=== PATIENT | female | born 1950 | race Caucasian/White ===

== ENCOUNTER 2021-04-11 18:05 | Inpatient (IN) | payer MEDICARE, OTHER ==
[~2021-04-11] VITALS: Ht 162.6 cm; Wt 74.2 kg
[2021-04-11] MEDS ORDERED: FAMOTIDINE 20 MG/2 ML VIAL IVP ONE (18:30)
[2021-04-11] MEDS ORDERED: IV NORMAL SALINE 1000ML BAG 1,000 ML IV SCH (18:30)
[2021-04-11] MEDS ORDERED: ONDANSETRON PF 4 MG/2 ML VIAL. IVP ONE (18:30)
[2021-04-11 18:50] LABS: BASO # 0.1 x10^3/uL (0.0-0.2); BASO % 1 % (0-3); EOS # 0.1 x10^3/uL (0.0-0.7); EOS % 1 % (0-3); HEMATOCRIT 42.6 % (36.0-47.0); HEMOGLOBIN 14.1 g/dL (12.0-15.5); LYMPH # 2.4 x10^3/uL (1.0-4.8); LYMPH % 15 % (24-48); MEAN CORPUSCULAR HEMOGLOBIN 29 pg (25-35); MEAN CORPUSCULAR HGB CONC 33 g/dL (31-37); MEAN CORPUSCULAR VOLUME 87 fL (79-100); MONO # 1.8 x10^3/uL (0.0-1.1); MONO % 11 % (0-9); NEUT # 12.2 x10^3/uL (1.8-7.7); NEUT % 73 % (31-73); PLATELET COUNT 382 x10^3/uL (140-400); RED BLOOD COUNT 4.91 x10^6/uL (3.50-5.40); RED CELL DISTRIBUTION WIDTH 14.1 % (11.5-14.5); WHITE BLOOD COUNT 16.6 x10^3/uL (4.0-11.0)
[2021-04-11 19:04] LABS: CALCIUM 9.6 mg/dL (8.5-10.1); CREATININE 0.8 mg/dL (0.6-1.0); GFR 70.9; POTASSIUM 3.6 mmol/L (3.5-5.1)
[2021-04-11 19:11] LABS: DIRECT BILIRUBIN 0.3 mg/dL (0.0-0.2); TOTAL BILIRUBIN 1.2 mg/dL (0.2-1.0)
[2021-04-11] MEDS: fentaNYL PF VIAL 100 MCG/2 ML VIAL IV PRN (19:12)
--- NOTE | 2021-04-11 19:12 | PHYS DOC ---
Past Medical History Additional Past Medical Histor: breast cancer Past Surgical History: Cancer Surgery, General Adult EDM: Chief Complaint: ABDOMINAL PAIN HPI: HPI: 70-year-old female past medical history of former stage IIIc breast cancer (2008 in remission), presents to the ED with complaints of epigastric and right upper quadrant abdominal pain described as pressure and burning like fire that has been intermittent, waxing and waning with meals since 10:45 PM Saturday night. Reports associated nausea, diarrhea and worsening pain with deep breaths. States "I can taste bile." Went to [facility] and was advised to come to the ed, followup with pcp and take mylanta. Has no pcp 2/2 insurance change. Has a h/o gall stones. PSH-3 C-sections. Takes no routine prescribed medications. Review of Systems: Review of Systems: Constitutional: Denies fever or chills. [] Eyes: Denies change in visual acuity. [] HENT: Denies nasal congestion or sore throat. [] Respiratory: Denies cough or shortness of breath. [] Cardiovascular: Denies chest pain or edema. [] GI: Denies constipation, melena or hematochezia : Denies dysuria or hematuria Musculoskeletal: Denies back pain or joint pain. [] Integument: Denies rash or diaphoresis Neurologic: Denies headache, focal weakness or sensory changes. [] Endocrine: Denies polyuria or polydipsia. [] Lymphatic: Denies swollen glands. [] Psychiatric: Denies depression or anxiety. [] Heart Score: C/O Chest Pain: No Risk Factors: Risk Factors: DM, Current or recent (<one month) smoker, HTN, HLP, family history of CAD, obesity. Risk Scores: Score 0 - 3: 2.5% MACE over next 6 weeks - Discharge Home Score 4 - 6: 20.3% MACE over next 6 weeks - Admit for Clinical Observation Score 7 - 10: 72.7% MACE over next 6 weeks - Early Invasive Strategies Current Medications: Current Medications Medications (Trade) Dose Ordered Sig/Destiny Start Time Stop Time Status Last Admin Dose Admin Famotidine (Pepcid Vial) 20 mg 1X ONCE 04/11/21 18:30 04/11/21 19:00 DC Fentanyl Citrate (Fentanyl 2ml Vial) 50 mcg PRN Q15MIN PRN 04/11/21 18:30 04/12/21 18:29 Ondansetron HCl (Zofran) 4 mg 1X ONCE 04/11/21 18:30 04/11/21 19:00 DC Sodium Chloride 1,000 ml @ 1,000 mls/hr Q1H 04/11/21 18:30 04/11/21 19:29 Allergies: Allergies: Allergies Coded Allergies Type Severity Reaction Last Updated Verified feathers Allergy Intermediate 04/11/21 Yes latex Allergy Intermediate 04/11/21 Yes Physical Exam: PE: Constitutional: Well developed, non-toxic appearance. HENT: Normocephalic, atraumatic, dry mucous membranes Eyes: EOMI, conjunctiva normal, no discharge. Neck: Normal range of motion, supple, Cardiovascular: S1/2 present, tachycardic Lungs & Thorax: Speaking in full sentences, bilateral equal chest rise, no tachypnea or increased work of breathing Abdomen: soft, epigastric and right upper quadrant tenderness, Grossman sign present, lower abdomen with vertical abdominal wall scar, no rigidity or guarding Skin: Warm, dry, no erythema, no rash. [] Back: No tenderness, no CVA tenderness. [] Extremities: No tenderness, no cyanosis, no lower extremity edema Neurologic: Alert and oriented X 3, normal motor function, normal sensory function, no focal deficits noted. [] Psychologic: Affect normal, judgement normal, mood normal. [] Current Patient Data: Labs: Laboratory Tests Test 04/11/21 18:37 White Blood Count 16.6 x10^3/uL (4.0-11.0) H Red Blood Count 4.91 x10^6/uL (3.50-5.40) Hemoglobin 14.1 g/dL (12.0-15.5) Hematocrit 42.6 % (36.0-47.0) Mean Corpuscular Volume 87 fL (79-100) Mean Corpuscular Hemoglobin 29 pg (25-35) Mean Corpuscular Hemoglobin Concent 33 g/dL (31-37) Red Cell Distribution Width 14.1 % (11.5-14.5) Platelet Count 382 x10^3/uL (140-400) Neutrophils (%) (Auto) 73 % (31-73) Lymphocytes (%) (Auto) 15 % (24-48) L Monocytes (%) (Auto) 11 % (0-9) H Eosinophils (%) (Auto) 1 % (0-3) Basophils (%) (Auto) 1 % (0-3) Neutrophils # (Auto) 12.2 x10^3/uL (1.8-7.7) H Lymphocytes # (Auto) 2.4 x10^3/uL (1.0-4.8) Monocytes # (Auto) 1.8 x10^3/uL (0.0-1.1) H Eosinophils # (Auto) 0.1 x10^3/uL (0.0-0.7) Basophils # (Auto) 0.1 x10^3/uL (0.0-0.2) Laboratory Tests 04/11/21 18:37 Vital Signs: Vital Signs Date Time Temp Pulse Resp B/P (MAP) Pulse Ox O2 Delivery O2 Flow Rate FiO2 04/11/21 18:15 98.8 137 18 142/79 (100) 99 Room Air 98.8 EKG: EKG: Sinus tachycardia 120 bpm, no axis deviation, QTC 474, Q-wave lead III and aVF, no ST elevation or depression Radiology/Procedures: Radiology/Procedures: IMAGING REPORT Signed PATIENT: RODO HARLEY ACCOUNT: [id number] : 1950 LOCATION: ER AGE: 70 SEX: F EXAM STATUS: PRE ER ORD. PHYSICIAN: ENRIQUE MARIA DO REASON: ruq pain, h/o gall stones PROCEDURE: ABDOMEN LTD Right upper quadrant abdominal ultrasound History: Reason: ruq pain, h/o gall stones Comparison: None. Technique: Transabdominal ultrasound images are obtained. Findings: There is increased echogenicity of the liver and there is decreased through- transmission. The liver measures 16.5 cm. Ultrasound is not sensitive for detecting solid liver lesions. Portal flow is hepatopetal. The common bile duct diameter measures 7 mm. The gallbladder is distended. There is a 2.2 cm echogenic stone in the neck of the gallbladder. There is trace pericholecystic fluid. No gallbladder wall thickening is identified. Sonographic Grossman sign is positive. The pancreas is obscured due to overlying bowel gas. The right kidney is normal in echotexture and measures 10.4 cm. Corticomedullary differentiation is preserved. There is no hydronephrosis. IVC is unremarkable. IMPRESSION: 1. The gallbladder is distended and contains a large gallstone. There is trace pericholecystic fluid and sonographic Grossman sign is positive. Findings may indicate acute cholecystitis although there is no gallbladder wall thickening. Consider hepatobiliary scintigraphy. 2. Fatty infiltration of the liver. Electronically signed by: Edilson Delgado MD (04/11/2021 7:49 PM) [facility] DICTATED and SIGNED BY: EDILSON DELGADO MD DATE: 04/11/[id number] 0 IMAGING REPORT Signed PATIENT: RODO HARLEY ACCOUNT: [id number] : 1950 LOCATION: ER AGE: 70 SEX: F EXAM STATUS: PRE ER ORD. PHYSICIAN: ENRIQUE MARIA DO REASON: ruq pain PROCEDURE: PORTABLE CHEST 1V Single view chest dated 04/11/2021 7:25 PM: COMPARISON: None Clinical Indication: Right upper quadrant pain. Findings: Single upright portable exam of the chest was performed. Heart and mediastinal contours within normal limits. Lungs are somewhat hyperinflated but otherwise clear. No consolidation or pleural effusion. No pneumothorax. IMPRESSION: No acute radiographic abnormality. Electronically signed by: Rajeev Salgado MD (04/11/2021 7:26 PM) [facility] DICTATED and SIGNED BY: RAJEEV SALGADO MD DATE: 04/11/[id number] 0 Course & Med Decision Making: Course & Med Decision Making Pertinent Labs and Imaging studies reviewed. (See chart for details) Concern for acute calculus cholecystitis that does meet sepsis criteria. Tachycardia improved with IV fluids. Started on antibiotics. Will admit to medicine for further medical management and surgical consultation. Patient stable time of admission and agrees to this plan. I have spoken with the patient and/or caregivers. I have explained the patient's condition, diagnosis and treatment plan based on the information available to me at this time. I have answered the patient's and/or caregivers questions and answered any concerns. The patient and/or caregivers have as good an understanding of the patient's diagnosis, condition and treatment plan as can be expected at this point. The patient has been stabilized within the capability of the emergency department. The patient will be transported for further care and management or will be moved to an observation or inpatient ser vice. I have communicated with the staff or medical practitioner taking over this patient's care. Dragon Disclaimer: Dragon Disclaimer: This electronic medical record was generated, in whole or in part, using a voice recognition dictation system. Departure Departure Impression: Primary Impression: Acute calculous cholecystitis Disposition: ADMITTED INPATIENT Admitting Physician: ZACHERY (Dr. Rodriguez) Condition: STABLE Referrals: NO PCP (PCP) ENRIQUE MARIA DO Apr 11, 2021 19:12
--- NOTE | 2021-04-11 19:28 | RAD ---
Single view chest dated 04/11/2021 7:25 PM: COMPARISON: None Clinical Indication: Right upper quadrant pain. Findings: Single upright portable exam of the chest was performed. Heart and mediastinal contours within normal limits. Lungs are somewhat hyperinflated but otherwise clear. No consolidation or pleural effusion. No pneumothorax. IMPRESSION: No acute radiographic abnormality. Electronically signed by: Rajeev Salgado MD (04/11/2021 7:26 PM) [facility]
--- NOTE | 2021-04-11 19:52 | RAD ---
Right upper quadrant abdominal ultrasound History: Reason: ruq pain, h/o gall stones Comparison: None. Technique: Transabdominal ultrasound images are obtained. Findings: There is increased echogenicity of the liver and there is decreased through-transmission. The liver m easures 16.5 cm. Ultrasound is not sensitive for detecting solid liver lesions. Portal flow is hepato petal. The common bile duct diameter measures 7 mm. The gallbladder is distended. There is a 2.2 cm echogenic stone in the neck of the gallbladder. There is trace pericholecystic fluid. No gallbladder wall thickening is identified. Sonographic Grossman sig n is positive. The pancreas is obscured due to overlying bowel gas. The right kidney is normal in echotexture and measures 10.4 cm. Corticomedullary differentiation is preserved. There is no hydronephrosis. IVC is unremarkable. IMPRESSION: 1. The gallbladder is distended and contains a large gallstone. There is trace pericholecystic fluid and sonographic Grossman sign is positive. Findings may indicate acute cholecystitis although there is no gallbladder wall thickening. Consider hepatobiliary scintigraphy. 2. Fatty infiltration of the liver. Electronically signed by: Edilson Delgado MD (04/11/2021 7:49 PM) [facility]
[2021-04-11] MEDS ORDERED: PIP/TAZO PER PHARMACY MC PRN (20:45)
[2021-04-11] MEDS ORDERED: IV NORMAL SALINE 1000ML BAG 1,000 ML IV ONE (20:45)
[2021-04-11] MEDS ORDERED: cefTRIAXone IV Push 1 GM VIAL. IVP ONE (20:45)
[2021-04-11] MEDS ORDERED: ONDANSETRON PF 4 MG/2 ML VIAL. IVP PRN (20:45)
[2021-04-11] MEDS ORDERED: HYDROmorphone 2 MG/ML INJ. IVP ONE (21:00)
[2021-04-11] MEDS: PIPERACILLIN/TAZOBACTAM 3.375 GM in IV NORMAL SALINE 50ML 50 ML IV SCH (21:32)
[2021-04-11 22:00] VITALS: BP 122/53
--- NOTE | 2021-04-11 22:10 | NUR ---
Received patient from ER per cart to room 430. Admitting diagnosis: acute cholecystitis with nausea and vomiting since 04-09-21. Patient is alert and oriented x4. Patient is allergic to chicken feathers,eggs, latex and adhesive tape. Patient lives at home with her who she cares for. has Alzheimer's and Dementia. Patient states that pain originally started in January 2021 and it has gradually increased over the last two months. Pain has been pretty intense since Saturday04-09-21 and she went to urgent care yesterday and was given antacid with no improvement of symptoms. She then came to [facility] ER today and was diagnosed with acute cholecystitis. Admitted with surgery consult. Patient is NPO at this time. Will continue to monitor.
[2021-04-11] MEDS ORDERED: ASCO-180 PO (23:09)
[2021-04-11] MEDS ORDERED: CYAN-25 PO (23:09)
[2021-04-11] MEDS ORDERED: ASPI-630 PO (23:09)
[2021-04-12 03:30] VITALS: BP 106/58
[2021-04-12] MEDS: PIPERACILLIN/TAZOBACTAM 3.375 GM in IV NORMAL SALINE 50ML 50 ML IV SCH ×4 (06:00→19:39)
[2021-04-12 07:00] VITALS: BP 127/64
--- NOTE | 2021-04-12 07:04 | PDOC1 ---
History and Physical Date of Admission Date of Admission DATE: 04/12/21 TIME: 06:57 Identification/Chief Complaint Chief Complaint Abdominal pain Source Source: Patient History of Present Illness History of Present Illness Ms Lu is a 70yo female with PMHx left breast cancer 2008 (s/p radx, chemo, bilateral mastectomy and left axillary lymph node dissection) who comes to ED complaining of right upper quadrant epigastric abdominal pain. Notes at worst it 7 out of 10 and is been progressive since 04/09/2021 when she woke. It remitted but she woke on Saturday and had some chicken and pain came back she went to her urgent care and was instructed to come to the ED try to take Mylanta. She was given GI cocktail with no real improvement. She is only been able to eat oatmeal. No vomiting but does note some diarrhea. No fever no recent sick contacts or travel. She is fully vaccinated against COVID-19. Up-to-date on other vaccinations. She is currently between primary care physicians due to insurance change. She notes pain occurred that was the same back on February 05. She tried a liquid diet at that time and pain remitted after about 6 hours. Takes no routine prescribed medications. She does not smoke and drinks very little alcohol. 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 RUQ reveals gallbladder is distended and contains a large gallstone. There is trace pericholecystic fluid and sonographic Grossman sign is positive. Chest radiograph negative Past Medical History Heme/Onc: Cancer (Left breast cancer) Past Surgical History Past Surgical History: (x3) Family History Family History: Cancer Social History Smoke: No ALCOHOL: none Drugs: None Current Problem List Problem List Problems Medical Problems: (1) Acute calculous cholecystitis Status: Acute Current Medications Current Medications Current Medications Fentanyl Citrate (Fentanyl 2ml Vial) 50 mcg PRN Q15MIN PRN IV PAIN GREATER THAN 3/10 Last administered on 04/11/21at 19:12; Start 04/11/21 at 18:30; Stop 04/12/21 at 18:29 Sodium Chloride 1,000 ml @ 1,000 mls/hr Q1H IV Last administered on 04/11/21at 19:11; Start 04/11/21 at 18:30; Stop 04/11/21 at 19:29; Status DC Ondansetron HCl (Zofran) 4 mg 1X ONCE IVP Last administered on 04/11/21at 19:12; Start 04/11/21 at 18:30; Stop 04/11/21 at 19:00; Status DC Famotidine (Pepcid Vial) 20 mg 1X ONCE IVP Last administered on 04/11/21at 19:12; Start 04/11/21 at 18:30; Stop 04/11/21 at 19:00; Status DC Ceftriaxone Sodium (Rocephin) 1 gm 1X ONCE IVP ; Start 04/11/21 at 20:45; Stop 04/11/21 at 20:46; Status UNV Metronidazole 100 ml @ 100 mls/hr 1X ONCE IV ; Start 04/11/21 at 20:45; Stop 04/11/21 at 21:44; Status UNV Sodium Chloride 1,000 ml @ 100 mls/hr 1X ONCE IV Last administered on 04/11/21at 21:32; Start 04/11/21 at 20:45; Stop 04/12/21 at 06:44; Status DC Ondansetron HCl (Zofran) 4 mg PRN Q4HRS PRN IVP NAUSEA/VOMITING Last administered on 04/11/21at 23:58; Start 04/11/21 at 20:45 Acetaminophen (Tylenol) 650 mg PRN Q6HRS PRN PO MILD PAIN / TEMP > 100.3'F; Start 04/11/21 at 20:45 Piperacillin Sod/ Tazobactam Sod (Zosyn Per Pharmacy) 1 each PRN DAILY PRN MC SEE COMMENTS; Start 04/11/21 at 20:45 Piperacillin Sod/ Tazobactam Sod 3.375 gm/Sodium Chloride 50 ml @ 100 mls/hr Q6HRS IV Last administered on 04/12/21at 06:00; Start 04/11/21 at 19:00 Hydromorphone HCl (Dilaudid) 0.5 mg 1X ONCE IVP Last administered on 04/11/21at 21:32; Start 04/11/21 at 21:00; Stop 04/11/21 at 21:01; Status DC Active Scripts Active Reported Emergen-C 1,000 mg Variety Pk (Ascorbic Acid/Multivit-Min) 1,000 Mg Effpowdpkt 1,000 Mg PO DAILY Aspirin 81 Mg Tab.chew 1 Tab PO DAILY Vitamin B-12 (Cyanocobalamin (Vitamin B-12)) 1,000 Mcg Tablet 1 Tab PO DAILY 30 Days Allergies Allergies: Coded Allergies: feathers (Verified Allergy, Intermediate, 04/11/21) latex (Verified Allergy, Intermediate, 04/11/21) ROS General: YES: Appetite; No: Chills, Night Sweats, Fatigue, Malaise, Other PSYCHOLOGICAL ROS: No: Anxiety, Behavioral Disorder, Concentration difficultie, Decreased libido, Depression, Disorientation, Hallucinations, Hostility, Irr itablity, Memory difficulties, Mood Swings, Obsessive thoughts, Physical abuse, Sexual abuse, Sleep disturbances, Suicidal ideation, Other Eyes: No Blurry vision, No Decreased vision, No Double vision, No Dry eyes, No Excessive tearing, No Eye Pain, No Itchy Eyes, No Loss of vision, No Photophobia, No Scotomata, No Uses contacts, No Uses glasses, No Other HEENT: No: Heacaches, Visual Changes, Hearing change, Nasal congestion, Nasal discharge, Oral lesions, Sinus pain, Sore Throat, Epistaxis, Sneezing, Snoring, Tinnitus, Vertigo, Vocal changes, Other ALLERGY AND IMMUNOLOGY: No: Hives, Insect Bite Sensitivity, Itchy/Watery Eyes, Nasal Congestion, Post Nasal Drip, Seasonal Allergies, Other Hematological and Lymphatic: No: Bleeding Problems, Blood Clots, Blood Transfusions, Brusing, Night Sweats, Pallor, Swollen Lymph Nodes, Other ENDOCRINE: No: Breast Changes, Galactorrhea, Hair Pattern Changes, Hot Flashes, Malaise/lethargy, Mood Swings, Palpitations, Polydipsia/polyuria, Skin Changes, Temperature Intolerance, Unexpected Weight Changes, Other Breast: No New/Changing Breast Lumps, No Nipple changes, No Nipple discharge, No Other Respiratory: No: Cough, Hemoptysis, Orthopnea, Pleuritic Pain, Shortness of breath, SOB with excertion, Sputum Changes, Stridor, Tachypnea, Wheezing, Other Cardiovascular: No Chest Pain, No Palpitations, No Orthopnea, No Paroxysmal Noc. Dyspnea, No Edema, No Lt Headedness, No Other Gastrointestinal: Yes Nausea, Yes Abdominal Pain, Yes Diarrhea; No Vomiting, No Constipation, No Melena, No Hematochezia, No Other Genitourinary: No Dysuria, No Frequency, No Incontinence, No Hematuria, No Re tention, No Discharge, No Urgency, No Pain, No Flank Pain, No Other, No , No , No , No , No , No , No Musculoskeletal: No Gait Disturbance, No Joint Pain, No Joint Stiffness, No Joint Swelling, No Muscle Pain, No Muscular Weakness, No Pain In:, No Swelling In:, No Other Neurological: No Behavorial Changes, No Bowel/Bladder ControlChng, No Confusion, No Dizziness, No Gait Disturbance, No Headaches, No Impaired Coord/balance, No Memory Loss, No Numbness/Tingling, No Seizures, No Speech Problems, No Tremors, No Visual Changes, No Weakness, No Other Skin: No Dry Skin, No Eczema, No Hair Changes, No Lumps, No Mole Changes, No Mottling, No Nail Changes, No Pruritus, No Rash, No Skin Lesion Changes, No Other, No Acne Physical Exam General: Alert, Oriented X3, Cooperative, mild distress HEENT: Atraumatic, PERRLA, EOMI, Mucous membr. moist/pink Lungs: Clear to auscultation, Normal air movement Heart: S1S2, RRR, no thrills, no rubs, no gallops, no murmurs Abdomen: Normal bowel sounds, Soft, No hepatosplenomegaly, No masses, Other (RUQ tenderness) Rectal Exam: not examined Extremities: No clubbing, No cyanosis, Normal pulses, No tenderness/swelling, Other (left arm edema) Skin: No rashes, No breakdown, No significant lesion Neuro: Normal gait, Normal speech, Strength at 5/5 X4 ext, Normal tone, Sensation intact, Cranial nerves 3-12 NL, Reflexes 2+ Psych/Mental Status: Mental status NL, Mood NL Vitals Vitals Vital Signs Date Time Temp Pulse Resp B/P (MAP) Pulse Ox O2 Delivery O2 Flow Rate FiO2 04/12/21 03:30 97.8 69 18 106/58 (74) 96 Room Air 97.8 Labs Labs Laboratory Tests Test 04/11/21 18:37 04/12/21 04:30 White Blood Count 16.6 x10^3/uL (4.0-11.0) Red Blood Count 4.91 x10^6/uL (3.50-5.40) Hemoglobin 14.1 g/dL (12.0-15.5) Hematocrit 42.6 % (36.0-47.0) Mean Corpuscular Volume 87 fL (79-100) Mean Corpuscular Hemoglobin 29 pg (25-35) Mean Corpuscular Hemoglobin Concent 33 g/dL (31-37) Red Cell Distribution Width 14.1 % (11.5-14.5) Platelet Count 382 x10^3/uL (140-400) Neutrophils (%) (Auto) 73 % (31-73) Lymphocytes (%) (Auto) 15 % (24-48) Monocytes (%) (Auto) 11 % (0-9) Eosinophils (%) (Auto) 1 % (0-3) Basophils (%) (Auto) 1 % (0-3) Neutrophils # (Auto) 12.2 x10^3/uL (1.8-7.7) Lymphocytes # (Auto) 2.4 x10^3/uL (1.0-4.8) Monocytes # (Auto) 1.8 x10^3/uL (0.0-1.1) Eosinophils # (Auto) 0.1 x10^3/uL (0.0-0.7) Basophils # (Auto) 0.1 x10^3/uL (0.0-0.2) Sodium Level 132 mmol/L (136-145) Potassium Level 3.6 mmol/L (3.5-5.1) Chloride Level 95 mmol/L (98-107) Carbon Dioxide Level 27 mmol/L (21-32) Anion Gap 10 (6-14) Blood Urea Nitrogen 11 mg/dL (7-20) Creatinine 0.8 mg/dL (0.6-1.0) Estimated GFR (Cockcroft-Gault) 70.9 Glucose Level 150 mg/dL (70-99) Lactic Acid Level 1.9 mmol/L (0.4-2.0) Calcium Level 9.6 mg/dL (8.5-10.1) Magnesium Level 2.0 mg/dL (1.8-2.4) Total Bilirubin 1.2 mg/dL (0.2-1.0) Direct Bilirubin 0.3 mg/dL (0.0-0.2) Aspartate Amino Transf (AST/SGOT) 66 U/L (15-37) Alanine Aminotransferase (ALT/SGPT) 58 U/L (14-59) Alkaline Phosphatase 94 U/L (46-116) Troponin I High Sensitivity 7 ng/L (4-50) Total Protein 8.0 g/dL (6.4-8.2) Albumin 4.0 g/dL (3.4-5.0) Lipase 86 U/L (73-393) SARS-CoV-2 Antigen (Rapid) Negative (NEGATIVE) Laboratory Tests Test 04/11/21 18:37 04/12/21 04:30 White Blood Count 16.6 x10^3/uL (4.0-11.0) Red Blood Count 4.91 x10^6/uL (3.50-5.40) Hemoglobin 14.1 g/dL (12.0-15.5) Hematocrit 42.6 % (36.0-47.0) Mean Corpuscular Volume 87 fL (79-100) Mean Corpuscular Hemoglobin 29 pg (25-35) Mean Corpuscular Hemoglobin Concent 33 g/dL (31-37) Red Cell Distribution Width 14.1 % (11.5-14.5) Platelet Count 382 x10^3/uL (140-400) Neutrophils (%) (Auto) 73 % (31-73) Lymphocytes (%) (Auto) 15 % (24-48) Monocytes (%) (Auto) 11 % (0-9) Eosinophils (%) (Auto) 1 % (0-3) Basophils (%) (Auto) 1 % (0-3) Neutrophils # (Auto) 12.2 x10^3/uL (1.8-7.7) Lymphocytes # (Auto) 2.4 x10^3/uL (1.0-4.8) Monocytes # (Auto) 1.8 x10^3/uL (0.0-1.1) Eosinophils # (Auto) 0.1 x10^3/uL (0.0-0.7) Basophils # (Auto) 0.1 x10^3/uL (0.0-0.2) Sodium Level 132 mmol/L (136-145) Potassium Level 3.6 mmol/L (3.5-5.1) Chloride Level 95 mmol/L (98-107) Carbon Dioxide Level 27 mmol/L (21-32) Anion Gap 10 (6-14) Blood Urea Nitrogen 11 mg/dL (7-20) Creatinine 0.8 mg/dL (0.6-1.0) Estimated GFR (Cockcroft-Gault) 70.9 Glucose Level 150 mg/dL (70-99) Lactic Acid Level 1.9 mmol/L (0.4-2.0) Calcium Level 9.6 mg/dL (8.5-10.1) Magnesium Level 2.0 mg/dL (1.8-2.4) Total Bilirubin 1.2 mg/dL (0.2-1.0) Direct Bilirubin 0.3 mg/dL (0.0-0.2) Aspartate Amino Transf (AST/SGOT) 66 U/L (15-37) Alanine Aminotransferase (ALT/SGPT) 58 U/L (14-59) Alkaline Phosphatase 94 U/L (46-116) Troponin I High Sensitivity 7 ng/L (4-50) Total Protein 8.0 g/dL (6.4-8.2) Albumin 4.0 g/dL (3.4-5.0) Lipase 86 U/L (73-393) SARS-CoV-2 Antigen (Rapid) Negative (NEGATIVE) Images Images Right upper quadrant abdominal ultrasound Findings: There is increased echogenicity of the liver and there is decreased through- transmission. The liver measures 16.5 cm. Ultrasound is not sensitive for detecting solid liver lesions. Portal flow is hepatopetal. The common bile duct diameter measures 7 mm. The gallbladder is distended. There is a 2.2 cm echogenic stone in the neck of the gallbladder. There is trace pericholecystic fluid. No gallbladder wall thickening is identified. Sonographic Grossman sign is positive. The pancreas is obscured due to overlying bowel gas. The right kidney is normal in echotexture and measures 10.4 cm. Corticomedu llary differentiation is preserved. There is no hydronephrosis. IVC is unremarkable. IMPRESSION: 1. The gallbladder is distended and contains a large gallstone. There is trace pericholecystic fluid and sonographic Grossman sign is positive. Findings may indicate acute cholecystitis although there is no gallbladder wall thickening. Consider hepatobiliary scintigraphy. 2. Fatty infiltration of the liver. PORTABLE CHEST 1V Radiograph: Single upright portable exam of the chest was performed. Heart and mediastinal contours within normal limits. Lungs are somewhat hyperinflated but otherwise clear. No consolidation or pleural effusion. No pneumothorax. IMPRESSION: No acute radiographic abnormality. VTE Prophylaxis Ordered VTE Prophylaxis Devices: No VTE Pharmacological Prophylaxi: Yes Assessment/Plan Assessment/Plan A/P: RUQ pain - appears to be acute cholecystitis. No further testing if surgery is planned. Sepsis - due to above, empiric fluids and antibiotics given Hyponatremia - likely nutritional, hypovolemic, will monitor Elevated transaminases - likely due to cholecystitis H/o Left breast cancer - stage IIIc status post left axillary lymph node di ssection bilateral mastectomy chemotherapy and 33 rounds of radiation 2008 FEN - NPO PPX - lovenox FULL CODE Dispo - inpatient Justifications for Admission Other Justification BAHMAN ARNOLD MD Apr 12, 2021 07:04
[2021-04-12] MEDS: fentaNYL PF VIAL 100 MCG/2 ML VIAL IV PRN ×2 (07:50→15:51)
[2021-04-12 08:27] LABS: BASO # 0.1 x10^3/uL (0.0-0.2); BASO % 1 % (0-3); EOS # 0.1 x10^3/uL (0.0-0.7); EOS % 1 % (0-3); HEMATOCRIT 35.2 % (36.0-47.0); HEMOGLOBIN 11.4 g/dL (12.0-15.5); LYMPH # 2.5 x10^3/uL (1.0-4.8); LYMPH % 17 % (24-48); MEAN CORPUSCULAR HEMOGLOBIN 29 pg (25-35); MEAN CORPUSCULAR HGB CONC 32 g/dL (31-37); MEAN CORPUSCULAR VOLUME 88 fL (79-100); MONO # 1.9 x10^3/uL (0.0-1.1); MONO % 13 % (0-9); NEUT % 69 % (31-73); PLATELET COUNT 302 x10^3/uL (140-400); WHITE BLOOD COUNT 14.6 x10^3/uL (4.0-11.0)
[2021-04-12 08:44] LABS: ALBUMIN 2.9 g/dL (3.4-5.0); ALBUMIN/GLOBULIN RATIO 0.7 (1.0-1.7); CALCIUM 8.2 mg/dL (8.5-10.1); CREATININE 0.8 mg/dL (0.6-1.0); GFR 70.9; TOTAL BILIRUBIN 1.1 mg/dL (0.2-1.0); TOTAL PROTEIN 6.9 g/dL (6.4-8.2)
[2021-04-12 10:21] LABS: % EOS 1 % (0-5); % LYMPHS 22 % (24-48); % MONOS 11 % (0-10); % SEGS 66 % (35-66)
[2021-04-12 10:22] LABS: PLT ESTIMATE ADEQUATE (ADEQUATE)
[2021-04-12 11:00] VITALS: BP 113/68
--- NOTE | 2021-04-12 11:18 | NUR ---
SW following. Discussed with RN, pt from home with (takes care of him), room air, NPO, rapid COVID-19 negative. Surgery following. RN advised pt gets around fine and no SW needs at this time. SW will continue to follow.
[2021-04-12] MEDS ORDERED: BUPIVACAINE-EPI 0.5% 30 ML VIAL KIT. ONE (13:25)
[2021-04-12] MEDS ORDERED: ONDANSETRON PF 4 MG/2 ML VIAL. ONE (13:34)
[2021-04-12] MEDS ORDERED: KETOROLAC 30 MG/ML VIAL. ONE (13:34)
[2021-04-12] MEDS ORDERED: FAMOTIDINE 20 MG/2 ML VIAL ONE (13:34)
[2021-04-12] MEDS ORDERED: LIDOCAINE 2% PF 5 ML VIAL. ONE ×2 (13:34→15:10)
[2021-04-12] MEDS ORDERED: DEXAMETHASONE SOD PHOS 4 MG/ML VIAL ONE (13:34)
[2021-04-12] MEDS ORDERED: PROPOFOL 10 MG/ML (20ML) VIAL. IV ONE ×2 (13:34→15:10)
[2021-04-12] MEDS ORDERED: ROCURONIUM 50 MG/5 ML VIAL. ONE ×2 (13:35→15:10)
--- NOTE | 2021-04-12 13:35 | PDOC2 ---
CONSULT Date of Consult Date of Consult DATE: 04/12/21 TIME: 13:31 Reason for Consult Reason for Consult: calculous cholecystitis Referring Physician Referring Physician: Dr. Georges. Identification/Chief Complaint Chief Complaint RUQ abd pain Source Source: Chart review, Patient History of Present Illness Reason for Visit: 70 yo F with c/o RUQ abd pain. Pain minimally improved Past Medical History Heme/Onc: Cancer (Left breast cancer) Past Surgical History Past Surgical History: (x3) Family History Family History: Cancer Social History No ALCOHOL: none Drugs: None Current Problem List Problem List Problems Medical Problems: (1) Acute calculous cholecystitis Status: Acute Current Medications Current Medications Current Medications Fentanyl Citrate (Fentanyl 2ml Vial) 50 mcg PRN Q15MIN PRN IV PAIN GREATER THAN 3/10 Last administered on 04/12/21at 07:50; Start 04/11/21 at 18:30; Stop 04/12/21 at 18:29 Sodium Chloride 1,000 ml @ 1,000 mls/hr Q1H IV Last administered on 04/11/21at 19:11; Start 04/11/21 at 18:30; Stop 04/11/21 at 19:29; Status DC Ondansetron HCl (Zofran) 4 mg 1X ONCE IVP Last administered on 04/11/21at 19:12; Start 04/11/21 at 18:30; Stop 04/11/21 at 19:00; Status DC Famotidine (Pepcid Vial) 20 mg 1X ONCE IVP Last administered on 04/11/21at 19:12; Start 04/11/21 at 18:30; Stop 04/11/21 at 19:00; Status DC Ceftriaxone Sodium (Rocephin) 1 gm 1X ONCE IVP ; Start 04/11/21 at 20:45; Stop 04/11/21 at 20:46; Status UNV Metronidazole 100 ml @ 100 mls/hr 1X ONCE IV ; Start 04/11/21 at 20:45; Stop 04/11/21 at 21:44; Status UNV Sodium Chloride 1,000 ml @ 100 mls/hr 1X ONCE IV Last administered on 04/11/21at 21:32; Start 04/11/21 at 20:45; Stop 04/12/21 at 06:44; Status DC Ondansetron HCl (Zofran) 4 mg PRN Q4HRS PRN IVP NAUSEA/VOMITING Last administered on 04/11/21at 23:58; Start 04/11/21 at 20:45 Acetaminophen (Tylenol) 650 mg PRN Q6HRS PRN PO MILD PAIN / TEMP > 100.3'F; Start 04/11/21 at 20:45 Piperacillin Sod/ Tazobactam Sod (Zosyn Per Pharmacy) 1 each PRN DAILY PRN MC SEE COMMENTS; Start 04/11/21 at 20:45 Piperacillin Sod/ Tazobactam Sod 3.375 gm/Sodium Chloride 50 ml @ 100 mls/hr Q6HRS IV Last administered on 04/12/21at 11:45; Start 04/11/21 at 19:00 Hydromorphone HCl (Dilaudid) 0.5 mg 1X ONCE IVP Last administered on 04/11/21at 21:32; Start 04/11/21 at 21:00; Stop 04/11/21 at 21:01; Status DC Heparin Sodium (Porcine) 1000 unit/Sodium Chloride 1,001 ml @ 1,001 mls/hr 1X ONCE IRR ; Start 04/12/21 at 11:00; Stop 04/12/21 at 11:59; Status DC Bupivacaine HCl/ Epinephrine Bitart (Sensorcain-Epi 0.5% Kit) 30 ml STK-MED ONCE .ROUTE ; Start 04/12/21 at 13:25; Stop 04/12/21 at 13:26; Status DC Iohexol (Omnipaque 300 Mg/ml) 50 ml STK-MED ONCE .ROUTE ; Start 04/12/21 at 13:25; Stop 04/12/21 at 13:26; Status DC Cellulose (Surgicel Hemostat 4x8) 1 each STK-MED ONCE .ROUTE ; Start 04/12/21 at 13:26; Stop 04/12/21 at 13:26; Status DC Active Scripts Active Reported Emergen-C 1,000 mg Variety Pk (Ascorbic Acid/Multivit-Min) 1,000 Mg Effpowdpkt 1,000 Mg PO DAILY Aspirin 81 Mg Tab.chew 1 Tab PO DAILY Vitamin B-12 (Cyanocobalamin (Vitamin B-12)) 1,000 Mcg Tablet 1 Tab PO DAILY 30 Days Allergies Allergies: Coded Allergies: feathers (Verified Allergy, Intermediate, 04/11/21) latex (Verified Allergy, Intermediate, 04/11/21) ROS Gastrointestinal: Yes Nausea, Yes Abdominal Pain Physical Exam General: Alert, Oriented X3, Cooperative, mild distress HEENT: Atraumatic Lungs: Normal air movement Abdomen: Soft, Other (TTP RUQ) Extremities: No clubbing, No cyanosis Skin: No rashes, No breakdown Neuro: Normal speech, Sensation intact Psych/Mental Status: Mental status NL, Mood NL Vitals VITALS Vital Signs Date Time Temp Pulse Resp B/P (MAP) Pulse Ox O2 Delivery O2 Flow Rate FiO2 04/12/21 11:00 98.0 75 18 113/68 (83) 96 Room Air 98.0 Labs Labs Laboratory Tests Test 04/11/21 18:37 04/12/21 04:30 04/12/21 07:25 White Blood Count 16.6 x10^3/uL (4.0-11.0) 14.6 x10^3/uL (4.0-11.0) Red Blood Count 4.91 x10^6/uL (3.50-5.40) 4.00 x10^6/uL (3.50-5.40) Hemoglobin 14.1 g/dL (12.0-15.5) 11.4 g/dL (12.0-15.5) Hematocrit 42.6 % (36.0-47.0) 35.2 % (36.0-47.0) Mean Corpuscular Volume 87 fL (79-100) 88 fL (79-100) Mean Corpuscular Hemoglobin 29 pg (25-35) 29 pg (25-35) Mean Corpuscular Hemoglobin Concent 33 g/dL (31-37) 32 g/dL (31-37) Red Cell Distribution Width 14.1 % (11.5-14.5) 14.0 % (11.5-14.5) Platelet Count 382 x10^3/uL (140-400) 302 x10^3/uL (140-400) Neutrophils (%) (Auto) 73 % (31-73) 69 % (31-73) Lymphocytes (%) (Auto) 15 % (24-48) 17 % (24-48) Monocytes (%) (Auto) 11 % (0-9) 13 % (0-9) Eosinophils (%) (Auto) 1 % (0-3) 1 % (0-3) Basophils (%) (Auto) 1 % (0-3) 1 % (0-3) Neutrophils # (Auto) 12.2 x10^3/uL (1.8-7.7) 10.0 x10^3/uL (1.8-7.7) Lymphocytes # (Auto) 2.4 x10^3/uL (1.0-4.8) 2.5 x10^3/uL (1.0-4.8) Monocytes # (Auto) 1.8 x10^3/uL (0.0-1.1) 1.9 x10^3/uL (0.0-1.1) Eosinophils # (Auto) 0.1 x10^3/uL (0.0-0.7) 0.1 x10^3/uL (0.0-0.7) Basophils # (Auto) 0.1 x10^3/uL (0.0-0.2) 0.1 x10^3/uL (0.0-0.2) Sodium Level 132 mmol/L (136-145) 138 mmol/L (136-145) Potassium Level 3.6 mmol/L (3.5-5.1) 4.0 mmol/L (3.5-5.1) Chloride Level 95 mmol/L (98-107) 104 mmol/L (98-107) Carbon Dioxide Level 27 mmol/L (21-32) 27 mmol/L (21-32) Anion Gap 10 (6-14) 7 (6-14) Blood Urea Nitrogen 11 mg/dL (7-20) 15 mg/dL (7-20) Creatinine 0.8 mg/dL (0.6-1.0) 0.8 mg/dL (0.6-1.0) Estimated GFR (Cockcroft-Gault) 70.9 70.9 Glucose Level 150 mg/dL (70-99) 103 mg/dL (70-99) Lactic Acid Level 1.9 mmol/L (0.4-2.0) Calcium Level 9.6 mg/dL (8.5-10.1) 8.2 mg/dL (8.5-10.1) Magnesium Level 2.0 mg/dL (1.8-2.4) Total Bilirubin 1.2 mg/dL (0.2-1.0) 1.1 mg/dL (0.2-1.0) Direct Bilirubin 0.3 mg/dL (0.0-0.2) Aspartate Amino Transf (AST/SGOT) 66 U/L (15-37) 36 U/L (15-37) Alanine Aminotransferase (ALT/SGPT) 58 U/L (14-59) 41 U/L (14-59) Alkaline Phosphatase 94 U/L (46-116) 76 U/L (46-116) Troponin I High Sensitivity 7 ng/L (4-50) Total Protein 8.0 g/dL (6.4-8.2) 6.9 g/dL (6.4-8.2) Albumin 4.0 g/dL (3.4-5.0) 2.9 g/dL (3.4-5.0) Lipase 86 U/L (73-393) SARS-CoV-2 Antigen (Rapid) Negative (NEGATIVE) Segmented Neutrophils % 66 % (35-66) Lymphocytes % 22 % (24-48) Monocytes % 11 % (0-10) Eosinophils % 1 % (0-5) Platelet Estimate Adequate (ADEQUATE) BUN/Creatinine Ratio 19 (6-20) Albumin/Globulin Ratio 0.7 (1.0-1.7) Laboratory Tests Test 04/11/21 18:37 04/12/21 04:30 04/12/21 07:25 White Blood Count 16.6 x10^3/uL (4.0-11.0) 14.6 x10^3/uL (4.0-11.0) Red Blood Count 4.91 x10^6/uL (3.50-5.40) 4.00 x10^6/uL (3.50-5.40) Hemoglobin 14.1 g/dL (12.0-15.5) 11.4 g/dL (12.0-15.5) Hematocrit 42.6 % (36.0-47.0) 35.2 % (36.0-47.0) Mean Corpuscular Volume 87 fL (79-100) 88 fL (79-100) Mean Corpuscular Hemoglobin 29 pg (25-35) 29 pg (25-35) Mean Corpuscular Hemoglobin Concent 33 g/dL (31-37) 32 g/dL (31-37) Red Cell Distribution Width 14.1 % (11.5-14.5) 14.0 % (11.5-14.5) Platelet Count 382 x10^3/uL (140-400) 302 x10^3/uL (140-400) Neutrophils (%) (Auto) 73 % (31-73) 69 % (31-73) Lymphocytes (%) (Auto) 15 % (24-48) 17 % (24-48) Monocytes (%) (Auto) 11 % (0-9) 13 % (0-9) Eosinophils (%) (Auto) 1 % (0-3) 1 % (0-3) Basophils (%) (Auto) 1 % (0-3) 1 % (0-3) Neutrophils # (Auto) 12.2 x10^3/uL (1.8-7.7) 10.0 x10^3/uL (1.8-7.7) Lymphocytes # (Auto) 2.4 x10^3/uL (1.0-4.8) 2.5 x10^3/uL (1.0-4.8) Monocytes # (Auto) 1.8 x10^3/uL (0.0-1.1) 1.9 x10^3/uL (0.0-1.1) Eosinophils # (Auto) 0.1 x10^3/uL (0.0-0.7) 0.1 x10^3/uL (0.0-0.7) Basophils # (Auto) 0.1 x10^3/uL (0.0-0.2) 0.1 x10^3/uL (0.0-0.2) Sodium Level 132 mmol/L (136-145) 138 mmol/L (136-145) Potassium Level 3.6 mmol/L (3.5-5.1) 4.0 mmol/L (3.5-5.1) Chloride Level 95 mmol/L (98-107) 104 mmol/L (98-107) Carbon Dioxide Level 27 mmol/L (21-32) 27 mmol/L (21-32) Anion Gap 10 (6-14) 7 (6-14) Blood Urea Nitrogen 11 mg/dL (7-20) 15 mg/dL (7-20) Creatinine 0.8 mg/dL (0.6-1.0) 0.8 mg/dL (0.6-1.0) Estimated GFR (Cockcroft-Gault) 70.9 70.9 Glucose Level 150 mg/dL (70-99) 103 mg/dL (70-99) Lactic Acid Level 1.9 mmol/L (0.4-2.0) Calcium Level 9.6 mg/dL (8.5-10.1) 8.2 mg/dL (8.5-10.1) Magnesium Level 2.0 mg/dL (1.8-2.4) Total Bilirubin 1.2 mg/dL (0.2-1.0) 1.1 mg/dL (0.2-1.0) Direct Bilirubin 0.3 mg/dL (0.0-0.2) Aspartate Amino Transf (AST/SGOT) 66 U/L (15-37) 36 U/L (15-37) Alanine Aminotransferase (ALT/SGPT) 58 U/L (14-59) 41 U/L (14-59) Alkaline Phosphatase 94 U/L (46-116) 76 U/L (46-116) Troponin I High Sensitivity 7 ng/L (4-50) Total Protein 8.0 g/dL (6.4-8.2) 6.9 g/dL (6.4-8.2) Albumin 4.0 g/dL (3.4-5.0) 2.9 g/dL (3.4-5.0) Lipase 86 U/L (73-393) SARS-CoV-2 Antigen (Rapid) Negative (NEGATIVE) Segmented Neutrophils % 66 % (35-66) Lymphocytes % 22 % (24-48) Monocytes % 11 % (0-10) Eosinophils % 1 % (0-5) Platelet Estimate Adequate (ADEQUATE) BUN/Creatinine Ratio 19 (6-20) Albumin/Globulin Ratio 0.7 (1.0-1.7) Images Images US with calculous cholecystitis Assessment/Plan Assessment/Plan calculous cholecystitis TO OR for laparoscopic versus open cholecystectomy with cholangiogram R/R/B/A d/w pt. Risks, including, but not limited to: bleeding, infection, damage to surrounding structures, risk of anesthesia, risk of open. She appears to understand, her questions are answered and she elects to proceed. Thanks for consult! MAURO JOHN MD Apr 12, 2021 13:35
[2021-04-12] MEDS ORDERED: HYDROmorphone 2 MG/ML INJ. ONE (13:37)
[2021-04-12 15:00] VITALS: BP 134/65
--- NOTE | 2021-04-12 15:30 | NUR ---
Taken to PACU in bed.
[2021-04-12] MEDS ORDERED: fentaNYL PF VIAL 100 MCG/2 ML VIAL ONE ×2 (15:45→17:12)
[2021-04-12] MEDS ORDERED: SCOPOLAMINE 1.5MG PATCH. TD ONE ×2 (15:45)
[2021-04-12] MEDS ORDERED: PROPOFOL 50 ML IV ONE ×3 (15:50→15:51)
[2021-04-12] MEDS ORDERED: IV RINGERS,LACTATED 1000ML 1,000 ML IV SCH ×2 (16:00→19:00)
[2021-04-12] MEDS ORDERED: HYDROmorphone 2 MG/ML INJ. IVP PRN ×2 (16:00→19:00)
[2021-04-12] MEDS ORDERED: fentaNYL PF VIAL 100 MCG/2 ML VIAL IVP PRN ×4 (16:00→19:00)
[2021-04-12] MEDS ORDERED: PROCHLORPERAZINE 10 MG/2 ML VIAL. IVP PRN ×2 (16:00→19:00)
[2021-04-12] MEDS ORDERED: MORPHINE SULFATE 2 MG/ML INJ. IVP PRN ×2 (16:00→19:00)
[2021-04-12] MEDS: HEPARIN 1,000 UNIT in IV NORMAL SALINE 1,000 ML for SURG PERIOP IRR ONE ×2 (16:53→17:55)
[2021-04-12] MEDS ORDERED: MIDAZOLAM HCL/PF 2 MG/2 ML VIAL. ONE (17:12)
[2021-04-12] MEDS ORDERED: SUGAMMADEX SODIUM 200 MG/2 ML VIAL. IVP ONE (18:00)
[2021-04-12] MEDS: BISACODYL 10 MG SUPP.RECT. ONE ×2 (18:10→19:09)
[2021-04-12] MEDS: SURGICEL HEMOSTAT 4X8 EACH. ONE ×2 (18:30→18:47)
[2021-04-12] MEDS: IOHEXOL 300 MG/ML 50 ML VIAL. ONE (18:39)
--- NOTE | 2021-04-12 19:10 | RAD ---
Exam: Intraoperative cholangiogram INDICATION: Cholecystectomy TECHNIQUE: Intraoperative fluoroscopic images of the abdomen were submitted for radiologic interpreta tion Comparisons: Ultrasound 04/12/2019 FINDINGS: Catheter within the cystic duct with contrast seen filling the remnant of the cystic duct, common zandra e duct intrahepatic ducts and a small amount in the duodenum. No intraductal filling defect is identi fied. Fluoroscopy time: 0.2 minutes IMPRESSION: Fluoroscopic images as described above. Please see procedural note for further details. Electronically signed by: Rachael Nicholas MD (04/12/2021 7:08 PM) MANUEL
[2021-04-12] MEDS ORDERED: HYDROcodone/APAP 5/325MG 1 TAB TABLET PO PRN (19:15)
[2021-04-12] MEDS ORDERED: NALOXONE 0.4 MG/ML VIAL. IV PRN (19:15)
[2021-04-12] MEDS ORDERED: DEXTROSE 50% 25 GM / 50ML DISP.SYRIN. IV PRN (19:15)
[2021-04-12] MEDS ORDERED: 0.9 % SODIUM CHLORIDE 10 ML DISP.SYRIN. IV PRN (19:15)
[2021-04-12] MEDS ORDERED: IV DEXTROSE 5% 250 ML BAG. IV PRN (19:15)
[2021-04-12] MEDS ORDERED: ONDANSETRON PF 4 MG/2 ML VIAL. IVP PRN (19:15)
[2021-04-12] MEDS ORDERED: IV NORMAL SALINE 1000ML BAG 1,000 ML IV SCH (19:15)
--- NOTE | 2021-04-12 19:17 | PDOC4 ---
OPERATIVE NOTE Date: Date: Apr 12, 2021 Pre-Op Diagnosis: Calculous cholecystitis Post-Op Diagnosis: same, severe Procedure Performed: laparoscopic cholecystectomy with cholangiogram Surgeon: Jose Armando John Anesthesia Type: GETA plus local Blood Loss: 100 Specimans Obtained: Gallbladder Findings: severe cholecystitis with obliteration of planes, white bile indicated of cystic duct obstruction, normal cholangiogram Complications: none Operative Note: After obtaining informed consent, patient was taken to OR, induced under GETA and prepped in the usual fashion. 5 mm ports placed umbilical and RUQ, 12 port placed epigastric, all under laparoscopic guidance. Abdominal cavity was explored and normal except noted as above. Gallbladder aspirated white bile. Gallbladder taken off fossa using cautery in dome down fashion. Cystic arteries, anterior and posterior, ligated with clips. Cholangiogram obtained via cystic duct (only remaining structures) and was normal. Cystic duct controlled with hemolok and clips. Gallbladder placed in bag, delivered and sent to pathology. Copious irrigation. No evidence of bleeding or other pathology. Ports removed without bleeding. 19 LEAH drain placed in fossa and brought out RUQ port and secured with 3 0 nylon. Fascia repaired with 0 vicryl. Skin repaired with 4 0 monocryl. Dressing placed. Patient tolerated procedure well and sent to PACU in stable condition. All counts correct. Wound class is 4. MAURO JOHN MD Apr 12, 2021 19:17
[2021-04-12 20:45] VITALS: BP 121/60
[2021-04-12] MEDS: DOCUSATE SODIUM 100 MG CAPSULE. PO SCH (21:45)
[2021-04-12] MEDS: IV RINGERS,LACTATED 1000ML 1,000 ML IV SCH (21:46)
[2021-04-12 23:14] VITALS: BP 126/62
[2021-04-13] MEDS: PIPERACILLIN/TAZOBACTAM 3.375 GM in IV NORMAL SALINE 50ML 50 ML IV SCH ×4 (00:03→18:22)
[2021-04-13] MEDS: ACETAMINOPHEN 325 MG TABLET. PO PRN ×2 (01:34→14:18)
[2021-04-13 03:13] VITALS: BP 108/51
[2021-04-13 05:40] LABS: BASO % 0 % (0-3); EOS % 0 % (0-3); HEMATOCRIT 31.2 % (36.0-47.0); LYMPH % 9 % (24-48); MEAN CORPUSCULAR HEMOGLOBIN 28 pg (25-35); MEAN CORPUSCULAR HGB CONC 32 g/dL (31-37); MEAN CORPUSCULAR VOLUME 88 fL (79-100); MONO # 0.4 x10^3/uL (0.0-1.1); MONO % 4 % (0-9); NEUT # 10.3 x10^3/uL (1.8-7.7); NEUT % 88 % (31-73); PLATELET COUNT 269 x10^3/uL (140-400); RED BLOOD COUNT 3.53 x10^6/uL (3.50-5.40); RED CELL DISTRIBUTION WIDTH 13.8 % (11.5-14.5); WHITE BLOOD COUNT 11.7 x10^3/uL (4.0-11.0)
[2021-04-13 06:32] LABS: ALBUMIN 2.4 g/dL (3.4-5.0); ALBUMIN/GLOBULIN RATIO 0.6 (1.0-1.7); CALCIUM 7.6 mg/dL (8.5-10.1); DIRECT BILIRUBIN 0.3 mg/dL (0.0-0.2); GFR 54.8; POTASSIUM 3.7 mmol/L (3.5-5.1); TOTAL BILIRUBIN 0.6 mg/dL (0.2-1.0); TOTAL PROTEIN 6.3 g/dL (6.4-8.2)
[2021-04-13 07:00] VITALS: BP 117/59
--- NOTE | 2021-04-13 08:00 | EKG ---
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
--- NOTE | 2021-04-13 08:49 | PDOC ---
SURGICAL PROGRESS NOTE DATE: 04/13/21 TIME: 08:48 Subjective sore, weakness no n/v Vital Signs Vital Signs Date Time Temp Pulse Resp B/P (MAP) Pulse Ox O2 Delivery O2 Flow Rate FiO2 04/13/21 07:00 97.4 77 18 117/59 (78) 95 Room Air 97.4 04/12/21 20:45 2.0 I&O Intake and Output 04/13/21 07:00 Intake Total 700 ml Output Total 330 ml Balance 370 ml Intake Oral 150 ml IV Total 550 ml Output Urine Total 100 ml Drainage Total 130 ml Estimated Blood Loss 100 ml # Voids 2 General: Alert, Oriented X3, Cooperative Abdomen: Soft, Other (lap dressings dry, tran serosang) Labs Laboratory Tests Test 04/11/21 18:37 04/12/21 04:30 04/12/21 07:25 04/13/21 04:05 White Blood Count 16.6 x10^3/uL (4.0-11.0) 14.6 x10^3/uL (4.0-11.0) 11.7 x10^3/uL (4.0-11.0) Red Blood Count 4.91 x10^6/uL (3.50-5.40) 4.00 x10^6/uL (3.50-5.40) 3.53 x10^6/uL (3.50-5.40) Hemoglobin 14.1 g/dL (12.0-15.5) 11.4 g/dL (12.0-15.5) 10.0 g/dL (12.0-15.5) Hematocrit 42.6 % (36.0-47.0) 35.2 % (36.0-47.0) 31.2 % (36.0-47.0) Mean Corpuscular Volume 87 fL (79-100) 88 fL (79-100) 88 fL (79-100) Mean Corpuscular Hemoglobin 29 pg (25-35) 29 pg (25-35) 28 pg (25-35) Mean Corpuscular Hemoglobin Concent 33 g/dL (31-37) 32 g/dL (31-37) 32 g/dL (31-37) Red Cell Distribution Width 14.1 % (11.5-14.5) 14.0 % (11.5-14.5) 13.8 % (11.5-14.5) Platelet Count 382 x10^3/uL (140-400) 302 x10^3/uL (140-400) 269 x10^3/uL (140-400) Neutrophils (%) (Auto) 73 % (31-73) 69 % (31-73) 88 % (31-73) Lymphocytes (%) (Auto) 15 % (24-48) 17 % (24-48) 9 % (24-48) Monocytes (%) (Auto) 11 % (0-9) 13 % (0-9) 4 % (0-9) Eosinophils (%) (Auto) 1 % (0-3) 1 % (0-3) 0 % (0-3) Basophils (%) (Auto) 1 % (0-3) 1 % (0-3) 0 % (0-3) Neutrophils # (Auto) 12.2 x10^3/uL (1.8-7.7) 10.0 x10^3/uL (1.8-7.7) 10.3 x10^3/uL (1.8-7.7) Lymphocytes # (Auto) 2.4 x10^3/uL (1.0-4.8) 2.5 x10^3/uL (1.0-4.8) 1.0 x10^3/uL (1.0-4.8) Monocytes # (Auto) 1.8 x10^3/uL (0.0-1.1) 1.9 x10^3/uL (0.0-1.1) 0.4 x10^3/uL (0.0-1.1) Eosinophils # (Auto) 0.1 x10^3/uL (0.0-0.7) 0.1 x10^3/uL (0.0-0.7) 0.0 x10^3/uL (0.0-0.7) Basophils # (Auto) 0.1 x10^3/uL (0.0-0.2) 0.1 x10^3/uL (0.0-0.2) 0.0 x10^3/uL (0.0-0.2) Sodium Level 132 mmol/L (136-145) 138 mmol/L (136-145) 141 mmol/L (136-145) Potassium Level 3.6 mmol/L (3.5-5.1) 4.0 mmol/L (3.5-5.1) 3.7 mmol/L (3.5-5.1) Chloride Level 95 mmol/L (98-107) 104 mmol/L (98-107) 105 mmol/L (98-107) Carbon Dioxide Level 27 mmol/L (21-32) 27 mmol/L (21-32) 22 mmol/L (21-32) Anion Gap 10 (6-14) 7 (6-14) 14 (6-14) Blood Urea Nitrogen 11 mg/dL (7-20) 15 mg/dL (7-20) 12 mg/dL (7-20) Creatinine 0.8 mg/dL (0.6-1.0) 0.8 mg/dL (0.6-1.0) 1.0 mg/dL (0.6-1.0) Estimated GFR (Cockcroft-Gault) 70.9 70.9 54.8 Glucose Level 150 mg/dL (70-99) 103 mg/dL (70-99) 231 mg/dL (70-99) Lactic Acid Level 1.9 mmol/L (0.4-2.0) Calcium Level 9.6 mg/dL (8.5-10.1) 8.2 mg/dL (8.5-10.1) 7.6 mg/dL (8.5-10.1) Magnesium Level 2.0 mg/dL (1.8-2.4) Total Bilirubin 1.2 mg/dL (0.2-1.0) 1.1 mg/dL (0.2-1.0) 0.6 mg/dL (0.2-1.0) Direct Bilirubin 0.3 mg/dL (0.0-0.2) 0.3 mg/dL (0.0-0.2) Aspartate Amino Transf (AST/SGOT) 66 U/L (15-37) 36 U/L (15-37) 70 U/L (15-37) Alanine Aminotransferase (ALT/SGPT) 58 U/L (14-59) 41 U/L (14-59) 79 U/L (14-59) Alkaline Phosphatase 94 U/L (46-116) 76 U/L (46-116) 85 U/L (46-116) Troponin I High Sensitivity 7 ng/L (4-50) Total Protein 8.0 g/dL (6.4-8.2) 6.9 g/dL (6.4-8.2) 6.3 g/dL (6.4-8.2) Albumin 4.0 g/dL (3.4-5.0) 2.9 g/dL (3.4-5.0) 2.4 g/dL (3.4-5.0) Lipase 86 U/L (73-393) SARS-CoV-2 Antigen (Rapid) Negative (NEGATIVE) Segmented Neutrophils % 66 % (35-66) Lymphocytes % 22 % (24-48) Monocytes % 11 % (0-10) Eosinophils % 1 % (0-5) Platelet Estimate Adequate (ADEQUATE) BUN/Creatinine Ratio 19 (6-20) 12 (6-20) Albumin/Globulin Ratio 0.7 (1.0-1.7) 0.6 (1.0-1.7) Laboratory Tests Test 04/13/21 04:05 White Blood Count 11.7 x10^3/uL (4.0-11.0) Red Blood Count 3.53 x10^6/uL (3.50-5.40) Hemoglobin 10.0 g/dL (12.0-15.5) Hematocrit 31.2 % (36.0-47.0) Mean Corpuscular Volume 88 fL (79-100) Mean Corpuscular Hemoglobin 28 pg (25-35) Mean Corpuscular Hemoglobin Concent 32 g/dL (31-37) Red Cell Distribution Width 13.8 % (11.5-14.5) Platelet Count 269 x10^3/uL (140-400) Neutrophils (%) (Auto) 88 % (31-73) Lymphocytes (%) (Auto) 9 % (24-48) Monocytes (%) (Auto) 4 % (0-9) Eosinophils (%) (Auto) 0 % (0-3) Basophils (%) (Auto) 0 % (0-3) Neutrophils # (Auto) 10.3 x10^3/uL (1.8-7.7) Lymphocytes # (Auto) 1.0 x10^3/uL (1.0-4.8) Monocytes # (Auto) 0.4 x10^3/uL (0.0-1.1) Eosinophils # (Auto) 0.0 x10^3/uL (0.0-0.7) Basophils # (Auto) 0.0 x10^3/uL (0.0-0.2) Sodium Level 141 mmol/L (136-145) Potassium Level 3.7 mmol/L (3.5-5.1) Chloride Level 105 mmol/L (98-107) Carbon Dioxide Level 22 mmol/L (21-32) Anion Gap 14 (6-14) Blood Urea Nitrogen 12 mg/dL (7-20) Creatinine 1.0 mg/dL (0.6-1.0) Estimated GFR (Cockcroft-Gault) 54.8 BUN/Creatinine Ratio 12 (6-20) Glucose Level 231 mg/dL (70-99) Calcium Level 7.6 mg/dL (8.5-10.1) Total Bilirubin 0.6 mg/dL (0.2-1.0) Direct Bilirubin 0.3 mg/dL (0.0-0.2) Aspartate Amino Transf (AST/SGOT) 70 U/L (15-37) Alanine Aminotransferase (ALT/SGPT) 79 U/L (14-59) Alkaline Phosphatase 85 U/L (46-116) Total Protein 6.3 g/dL (6.4-8.2) Albumin 2.4 g/dL (3.4-5.0) Albumin/Globulin Ratio 0.6 (1.0-1.7) Problem List Problems Medical Problems: (1) Acute calculous cholecystitis Status: Acute Assessment/Plan s/p margy iv abx today, ambulate, home tomorrow Justicifation of Admission Dx: Justifications for Admission: Justification of Admission Dx: Yes Comments: cholecystitis MICHELLE CAMPOS GERIATRIC PHYSICAL THERAPIST Apr 13, 2021 08:49
[2021-04-13] MEDS: DOCUSATE SODIUM 100 MG CAPSULE. PO SCH ×2 (09:02→21:00)
[2021-04-13] MEDS: ENOXAPARIN 40 MG/0.4 ML SYRINGE. SQ SCH (09:04)
[2021-04-13] MEDS: IV RINGERS,LACTATED 1000ML 1,000 ML IV SCH ×2 (09:05→18:21)
[2021-04-13 11:04] VITALS: BP 115/56
--- NOTE | 2021-04-13 11:27 | PDOC ---
[facility] PROGRESS NOTE Date of Service DOS: DATE: 04/13/21 TIME: 11:16 Chief Complaint Chief Complaint RUQ pain - appears to be acute cholecystitis. S/p lap margy 04/12/21 Sepsis - due to above, empiric fluids and antibiotics given Hyponatremia - likely nutritional, hypovolemic, will monitor Elevated transaminases - likely due to cholecystitis H/o Left breast cancer - stage IIIc status post left axillary lymph node dissection bilateral mastectomy chemotherapy and 33 rounds of radiation 2008 FEN - ADAT PPX - lovenox FULL CODE Dispo - inpatient History of Present Illness History of Present Illness Ms Lu is a 70yo female with PMHx left breast cancer 2008 (s/p radx, chemo, bilateral mastectomy and left axillary lymph node dissection) who comes to ED complaining of right upper quadrant epigastric abdominal pain. Notes at worst it 7 out of 10 and is been progressive since 04/09/2021 when she woke. It remitted but she woke on Saturday and had some chicken and pain came back she went to her urgent care and was instructed to come to the ED try to take Mylanta. She was given GI cocktail with no real improvement. She is only been able to eat oatmeal. No vomiting but does note some diarrhea. No fever no recent sick contacts or travel. She is fully vaccinated against COVID-19. Up-to-date on other vaccinations. She is currently between primary care physicians due to insurance change. She notes pain occurred that was the same back on February 05. She tried a liquid diet at that time and pain remitted after about 6 hours. Takes no routine prescribed medications. She does not smoke and drinks very little alcohol. 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 RUQ reveals gallbladder is distended and contains a large gallstone. There is trace pericholecystic fluid and sonographic Grossman sign is positive. Chest radiograph negative 3: To OR for uncomplicated lap margy 04/13: Seen POD#1. Drain with about 80 cc of serosanguineous fluid. Having pain and some nausea no vomiting. Tolerating p.o. well she has some vaginal irritation worried she has previous had yeast infections on antibiotics. No shortness of breath or chest pain. Left-sided breast pain is chronic for her. Vitals/I&O Vitals/I&O: Vital Signs Date Time Temp Pulse Resp B/P (MAP) Pulse Ox O2 Delivery O2 Flow Rate FiO2 04/13/21 11:04 98.0 82 18 115/56 (75) 96 Room Air 98.0 04/12/21 20:45 2.0 I & O 04/12/21 04/12/21 04/13/21 15:00 23:00 07:00 Intake Total 580 ml 120 ml Output Total 250 ml 80 ml Balance 330 ml 40 ml Physical Exam General: Alert, Oriented X3, Cooperative Abdomen: Soft, Other (lap dressings dry, tran serosang) Extremities: No clubbing, No cyanosis Skin: No rashes, No breakdown Labs Labs: Laboratory Tests Test 04/13/21 04:05 White Blood Count 11.7 x10^3/uL (4.0-11.0) Red Blood Count 3.53 x10^6/uL (3.50-5.40) Hemoglobin 10.0 g/dL (12.0-15.5) Hematocrit 31.2 % (36.0-47.0) Mean Corpuscular Volume 88 fL (79-100) Mean Corpuscular Hemoglobin 28 pg (25-35) Mean Corpuscular Hemoglobin Concent 32 g/dL (31-37) Red Cell Distribution Width 13.8 % (11.5-14.5) Platelet Count 269 x10^3/uL (140-400) Neutrophils (%) (Auto) 88 % (31-73) Lymphocytes (%) (Auto) 9 % (24-48) Monocytes (%) (Auto) 4 % (0-9) Eosinophils (%) (Auto) 0 % (0-3) Basophils (%) (Auto) 0 % (0-3) Neutrophils # (Auto) 10.3 x10^3/uL (1.8-7.7) Lymphocytes # (Auto) 1.0 x10^3/uL (1.0-4.8) Monocytes # (Auto) 0.4 x10^3/uL (0.0-1.1) Eosinophils # (Auto) 0.0 x10^3/uL (0.0-0.7) Basophils # (Auto) 0.0 x10^3/uL (0.0-0.2) Sodium Level 141 mmol/L (136-145) Potassium Level 3.7 mmol/L (3.5-5.1) Chloride Level 105 mmol/L (98-107) Carbon Dioxide Level 22 mmol/L (21-32) Anion Gap 14 (6-14) Blood Urea Nitrogen 12 mg/dL (7-20) Creatinine 1.0 mg/dL (0.6-1.0) Estimated GFR (Cockcroft-Gault) 54.8 BUN/Creatinine Ratio 12 (6-20) Glucose Level 231 mg/dL (70-99) Calcium Level 7.6 mg/dL (8.5-10.1) Total Bilirubin 0.6 mg/dL (0.2-1.0) Direct Bilirubin 0.3 mg/dL (0.0-0.2) Aspartate Amino Transf (AST/SGOT) 70 U/L (15-37) Alanine Aminotransferase (ALT/SGPT) 79 U/L (14-59) Alkaline Phosphatase 85 U/L (46-116) Total Protein 6.3 g/dL (6.4-8.2) Albumin 2.4 g/dL (3.4-5.0) Albumin/Globulin Ratio 0.6 (1.0-1.7) Assessment and Plan Assessmemt and Plan Problems Medical Problems: (1) Acute calculous cholecystitis Status: Acute Comment Review of Relevant I have reviewed the following items dom (where applicable) has been applied. Medications: Current Medications Medications (Trade) Dose Ordered Sig/Destiny Route PRN Reason Start Time Stop Time Status Last Admin Dose Admin Bupivacaine HCl/ Epinephrine Bitart (Sensorcain-Epi 0.5% Kit) 30 ml STK-MED ONCE .ROUTE 04/12/21 13:25 04/12/21 13:26 DC 04/12/21 17:55 Iohexol (Omnipaque 300 Mg/ml) 50 ml STK-MED ONCE .ROUTE 04/12/21 13:25 04/12/21 13:26 DC 04/12/21 18:39 Cellulose (Surgicel Hemostat 4x8) 1 each STK-MED ONCE .ROUTE 04/12/21 13:26 04/12/21 13:26 DC 04/12/21 18:47 Scopolamine (Transderm-Scop) 1 patch 1X ONCE TD 04/12/21 15:45 04/12/21 15:46 DC 04/12/21 15:52 Fentanyl Citrate (Fentanyl 2ml Vial) 50 mcg PRN Q5MIN PRN IVP MODERATE PAIN 4-6 04/12/21 16:00 04/12/21 23:00 DC 04/12/21 20:19 Bisacodyl (Dulcolax Supp) 10 mg STK-MED ONCE .ROUTE 04/12/21 16:48 04/12/21 16:49 DC 04/12/21 19:09 Enoxaparin Sodium (Lovenox 40mg Syringe) 40 mg Q24H SQ 04/13/21 09:00 04/13/21 09:04 Ringer's Solution 1,000 ml @ 100 mls/hr Q10H IV 04/12/21 20:00 04/13/21 09:05 Docusate Sodium (Colace) 100 mg BID PO 04/12/21 21:00 04/13/21 09:02 Justifications for Admission Other Justification BAHMAN ARNOLD MD Apr 13, 2021 11:26
[2021-04-13] MEDS ORDERED: FLUCONAZOLE 100 MG TABLET. PO ONE (12:00)
[2021-04-13 15:06] VITALS: BP 127/60
[2021-04-13] MEDS: fentaNYL PF VIAL 100 MCG/2 ML VIAL IVP PRN ×2 (15:19→20:31)
[2021-04-13 19:15] VITALS: BP 148/67
[2021-04-13 23:27] VITALS: BP 141/66
[2021-04-14] MEDS: PIPERACILLIN/TAZOBACTAM 3.375 GM in IV NORMAL SALINE 50ML 50 ML IV SCH ×4 (00:16→12:05)
[2021-04-14 03:34] VITALS: BP 133/67
[2021-04-14] MEDS: fentaNYL PF VIAL 100 MCG/2 ML VIAL IVP PRN (05:59)
[2021-04-14] MEDS: IV RINGERS,LACTATED 1000ML 1,000 ML IV SCH ×2 (06:01→12:00)
[2021-04-14 07:00] VITALS: BP 114/69
[2021-04-14] MEDS ORDERED: HYDR-2761 PO (07:50)
[2021-04-14] MEDS ORDERED: SENN1TAB99 PO (07:50)
--- NOTE | 2021-04-14 07:55 | NUR ---
Patient stated she is a DNR, not full code. Notified Dr. Felton, code status changed to DNR.
[2021-04-14] MEDS: DOCUSATE SODIUM 100 MG CAPSULE. PO SCH (08:30)
[2021-04-14] MEDS: ENOXAPARIN 40 MG/0.4 ML SYRINGE. SQ SCH (08:32)
--- NOTE | 2021-04-14 09:34 | PDOC ---
SURGICAL PROGRESS NOTE DATE: 04/14/21 TIME: 09:33 Subjective Pt with c/o incisional pain, but otherwise doing well Vital Signs Vital Signs Date Time Temp Pulse Resp B/P (MAP) Pulse Ox O2 Delivery O2 Flow Rate FiO2 04/14/21 07:43 Room Air 04/14/21 07:00 98.6 59 18 114/69 (84) 93 98.6 04/13/21 15:54 2.0 I&O Intake and Output 04/14/21 07:00 Intake Total 240 ml Output Total 110 ml Balance 130 ml Intake Oral 240 ml Drainage Total 110 ml # Voids 2 General: Alert, Oriented X3, Cooperative, No acute distress Abdomen: Soft, No tenderness, Other (drain serosang) Labs Laboratory Tests Test 04/13/21 04:05 White Blood Count 11.7 x10^3/uL (4.0-11.0) Red Blood Count 3.53 x10^6/uL (3.50-5.40) Hemoglobin 10.0 g/dL (12.0-15.5) Hematocrit 31.2 % (36.0-47.0) Mean Corpuscular Volume 88 fL (79-100) Mean Corpuscular Hemoglobin 28 pg (25-35) Mean Corpuscular Hemoglobin Concent 32 g/dL (31-37) Red Cell Distribution Width 13.8 % (11.5-14.5) Platelet Count 269 x10^3/uL (140-400) Neutrophils (%) (Auto) 88 % (31-73) Lymphocytes (%) (Auto) 9 % (24-48) Monocytes (%) (Auto) 4 % (0-9) Eosinophils (%) (Auto) 0 % (0-3) Basophils (%) (Auto) 0 % (0-3) Neutrophils # (Auto) 10.3 x10^3/uL (1.8-7.7) Lymphocytes # (Auto) 1.0 x10^3/uL (1.0-4.8) Monocytes # (Auto) 0.4 x10^3/uL (0.0-1.1) Eosinophils # (Auto) 0.0 x10^3/uL (0.0-0.7) Basophils # (Auto) 0.0 x10^3/uL (0.0-0.2) Sodium Level 141 mmol/L (136-145) Potassium Level 3.7 mmol/L (3.5-5.1) Chloride Level 105 mmol/L (98-107) Carbon Dioxide Level 22 mmol/L (21-32) Anion Gap 14 (6-14) Blood Urea Nitrogen 12 mg/dL (7-20) Creatinine 1.0 mg/dL (0.6-1.0) Estimated GFR (Cockcroft-Gault) 54.8 BUN/Creatinine Ratio 12 (6-20) Glucose Level 231 mg/dL (70-99) Calcium Level 7.6 mg/dL (8.5-10.1) Total Bilirubin 0.6 mg/dL (0.2-1.0) Direct Bilirubin 0.3 mg/dL (0.0-0.2) Aspartate Amino Transf (AST/SGOT) 70 U/L (15-37) Alanine Aminotransferase (ALT/SGPT) 79 U/L (14-59) Alkaline Phosphatase 85 U/L (46-116) Total Protein 6.3 g/dL (6.4-8.2) Albumin 2.4 g/dL (3.4-5.0) Albumin/Globulin Ratio 0.6 (1.0-1.7) Problem List Problems Medical Problems: (1) Acute calculous cholecystitis Status: Acute Assessment/Plan s/p lap margy OK to d/c home with drain when cleared by primary Justicifation of Admission Dx: Justifications for Admission: Justification of Admission Dx: Yes MAURO JOHN MD Apr 14, 2021 09:34
[2021-04-14 10:21] VITALS: BP 135/62
--- NOTE | 2021-04-14 10:47 | DISCH ---
DISCHARGE INSTRUCTIONS Condition on Discharge Condition on Discharge: Stable Activity After Discharge Activity Instructions for Disc: Activity as tolerated Lifting Instructions after Dis: Do not lift >10 pounds Exercise Instruction after Dis: Walk 30 min, 5 x per week Driving Instructions after Dis: Do not drive today Follow-Up Follow up with: General surgery on Saturday for postop wound check Follow Up With: PCP within 2 weeks of discharge SAV STEELE MD Apr 14, 2021 10:47
--- NOTE | 2021-04-14 10:51 | NUR ---
SW following. Discussed with RN, discharge order for home with self care. RN advised no SW needs.
[2021-04-14 11:47] LABS: BILIRUBIN,URINE NEGATIVE (NEG); CLARITY,URINE CLEAR; COLOR,URINE YELLOW; PH,URINE 6.5 (<5.0-8.0)
[2021-04-14 11:48] LABS: NITRITE,URINE NEGATIVE (NEG); PROTEIN,URINE NEGATIVE (NEG-TRACE); UROBILINOGEN,URINE 0.2 mg/dL (0.2 mg/dL)
[2021-04-14 11:49] LABS: BACTERIA,URINE FEW /HPF (0-FEW); RBC,URINE OCC /HPF (0-2)
--- NOTE | 2021-04-14 13:07 | NUR ---
Discharge Note: RODO HARLEY Discharge instructions and discharge home medications reviewed with Patient and a copy given. All questions have been answered and understanding verbalized. The following instructions and handouts were given: information about medications, incision care, follow up appointments, activity, diet. Discontinued lines and drains: IV line in right forearm removed, catheter tip intact. Patient discharged to home with self care with son, wheelchair used for mobility to discharge vehicle.
--- NOTE | 2021-04-17 15:07 | PATHOLOGY ---
[facility] Accession Number: [id number] . 01 Material submitted: . gallbladder - GALLBLADDER WITH CONTENTS . 01 Clinical history: . CALCULUS CHOLECYSTITIS LAPAROSCOPIC CHOLECYSTECTOMY= CHOLANGIOGRAMS . 02 Diagnosis: Gallbladder, laparoscopic cholecystectomy: - Cholelithiasis. - Acute hemorrhagic and chronic cholecystitis. . ([facility]:mm; 04/17/2021) [facility] 04/17/2021 1324 Local . 02 Comment: There is no evidence of malignancy. . ([facility]:mm; 04/17/2021) . 02 Electronically signed: . Sal Mathew MD, Pathologist NPI- [id number] . 01 Gross description: . Fixative: Formalin Labeled: Gallbladder with contents Specimen received: Previously disrupted gallbladder Dimensions: 9.1 x 4.1 x 2.5 cm Serosa: Light rodriguez to dark rodriguez-easton and hemorrhagic, with light rodriguez-yellow, shaggy and cauterized adventitia Lymph node: None identified Mucosa: Dark rodriguez, roughened and dusky Average wall thickness: 0.4 cm Calculi: Single dark rodriguez-yellow granular calculus found within fundus measuring 2.8 x 1.9 x 1.7 cm Abnormalities: None identified . A1- Handstitching Machine Armhole Feller body, fundus, and the cystic duct margin. ([facility]; 04/14/2021) [facility] 04/14/2021 1315 Local . 02 Pathologist provided ICD-10: K80.12 . 02 CPT . 867695 Specimen Comment: A courtesy copy of this report has been sent to [phone], [phone] Specimen Comment: [id number] Specimen Comment: Report sent to / DR ARNOLD Specimen Comment: A duplicate report has been generated due to demographic updates. Performed at: 01 [facility] [address] [facility] [address], [place] [id number] MD Cedrick Ayala MD Phone: [phone] Performed at: 02 [facility] [address] [place], [place] [id number] MD Sal Mathew MD Phone: [phone]
== END 2021-04-14 13:07 | disposition home or self-care (01) | DRG 854 ==
LOC: ER 18:05 → 4 NORTH 20:41
PROVIDERS: ADMIT Internal Medicine; ATTEND Internal Medicine
PROC: 0FT44ZZ Resection of Gallbladder, Percutaneous Endoscopic Approach (ICD-10-PCS; 2021-04-12)
PROC: BF111ZZ Fluoroscopy of Biliary and Pancreatic Ducts using Low Osmolar Contrast (ICD-10-PCS; principal; 2021-04-12 16:30)
DX: A41.9 Sepsis, unspecified organism (principal); K80.01 Calculus of gallbladder with acute cholecystitis with obstruction; E87.1 Hypo-osmolality and hyponatremia; K76.0 Fatty (change of) liver, not elsewhere classified; E86.1 Hypovolemia; N64.4 Mastodynia; N89.8 Other specified noninflammatory disorders of vagina; Z20.822 Contact with and (suspected) exposure to COVID-19; Z85.3 Personal history of malignant neoplasm of breast; Z90.13 Acquired absence of bilateral breasts and nipples; Z92.3 Personal history of irradiation; Z88.8 Allergy status to other drugs, medicaments and biological substances; Z91.012 Allergy to eggs; Z91.040 Latex allergy status
CPT/HCPCS: 36415; 71045; 74300; 76705; 80048; 80053; 80076; 81001; 82248; 83605; 83690; 83735; 84484; 85007; 85025; 87040; 87086; 87426; 88304; 93005; 96361; 96374; 96375; A4209; A4213; A4315; A4344; A4930; A6219; A6402; C1887; J1100; J1170; J1644; J1650; J1885; J2250; J2405; J2543; J2704; J3010; J3490; J7030; J7120; Q9967; U0003; 99285-25; G0378